=== PATIENT | female | born 1980 ===

== ENCOUNTER 2018-07-05 19:01 | Emergency (ER) | payer BC, OTHER ==
[2018-07-05 19:17] VITALS: RESP 20
--- NOTE | 2018-07-05 19:58 | C.PDOC ---
History Of Present Illness 38 year old female presents to ED with complaint of frequency and burning with urination for the past 3 days. She states that she had been drinking some cranberry juice and it help a little bit. Patient also complains of associated o f left flank pain. Patient's last normal menstrual period was at the end of June. Patient denies fever, chills, vomiting, nausea, blood in urine. Time Seen by Provider: 07/05/18 19:35 Chief Complaint (Nursing): Female Genitourinary History Per: Patient History/Exam Limitations: no limitations Onset/Duration Of Symptoms: Days (3) Current Symptoms Are (Timing): Still Present Quality Of Discomfort: Burning, "Pain" Associated Symptoms: Urinary Symptoms. denies: Fever, Chills, Nausea, Vomiting Past Medical History Reviewed: Historical Data, Nursing Documentation, Vital Signs Vital Signs: Last Vital Signs Temp 98.0 F 07/05/18 19:15 Pulse 81 07/05/18 19:15 Resp 20 07/05/18 19:15 BP 134/85 07/05/18 19:15 Pulse Ox 100 07/05/18 19:15 - Medical History PMH: No Chronic Diseases Surgical History: No Surg Hx Family History: States: Unknown Family Hx - Social History Hx Alcohol Use: No Hx Substance Use: No - Immunization History Hx Tetanus Toxoid Vaccination: No Hx Influenza Vaccination: No Hx Pneumococcal Vaccination: No Review Of Systems Constitutional: Negative for: Fever, Chills, Weakness Gastrointestinal: Positive for: Abdominal Pain (left flank pain ). Negative for: Nausea, Vomiting Genitourinary: Positive for: Dysuria, Frequency. Negative for: Hematuria Neurological: Negative for: Weakness, Numbness, Dizziness Physical Exam - Physical Exam Appears: Well, Non-toxic, No Acute Distress Skin: Normal Color, Warm, Dry Head: Atraumatic, Normacephalic Neck: Normal ROM, Supple Chest: Symmetrical, No Deformity Cardiovascular: Rhythm Regular, No Murmur Respiratory: No Accessory Muscle Use Gastrointestinal/Abdominal: Soft, No Tenderness Back: No CVA Tenderness Extremity: Capillary Refill (<2 seconds) Neurological/Psych: Oriented x3, Normal Speech, Normal Cognition ED Course And Treatment - Laboratory Results Result Diagrams: 07/05/18 20:03 07/05/18 20:03 Lab Interpretation: Abnormal (UA with clumps of WBCs and RBCs present) Urine POC: Negative O2 Sat by Pulse Oximetry: 100 (in RA) Pulse Ox Interpretation: Normal - CT Scan/US CT abd/pel Other Rad Studies (CT/US): Read By Radiologist, Radiology Report Reviewed CT/US Interpretation: EXAM: CT Abdomen and Pelvis without IV contrast. CLINICAL HISTORY: Abd pain. TECHNIQUE: Axial computed tomography images of the abdomen and pelvis without intravenous contrast. 1086 mGy-cm. CONTRAST: Without. COMPARISON: None provided. FINDINGS: LUNG BASES: The lung bases a ppear clear. No pleural effusions are seen. LIVER: There is diffuse hepatic hypoattenuation compatible with fatty infiltration. The liver is enlarged, 22 cm. GALLBLADDER AND BILE DUCTS: There are several calcified gallstones noted in the gallbladder measuring up to 2 cm. PANCREAS: Unremarkable. SPLEEN: Unremarkable. ADRENAL GLANDS: Unremarkable. KIDNEYS, URETERS, AND BLADDER: Punctate non-obstructing calculus is present in the lower pole of the right kidney. STOMACH AND BOWEL: Unremarkable appearance of the stomach and bowel. No evidence of bowel obstruction. No evidence suggesting enteritis or colitis. APPENDIX: No evidence of acute appendicitis on CT examination. PERITONEUM: No free fluid. No free air. LYMPH NODES: No lymphadenopathy is evident. REPRODUCTIVE: Unremarkable as visualized. VASCULATURE: No evidence of abdominal aortic aneurysm. BONES: No aggressive appearing osseous lesion. No acute osseous pathology evident. IMPRESSION: 1. Fatty liver. 2. There are several calcified gallstones noted in the gallbladder measuring up to 2 cm. 3. Punctate non-obstructing calculus is present in the lower pole of the right kidney. Reevaluation Time: 22:32 Reassessment Condition: Improved (after Toradol and IV Rocephin in ED.) Medical Decision Making Medical Decision Making: Impression: 38 year old female with frequency and dysuria Plan: Abdomen/Pelvis CT ordered for patient Labs ordered with UA and urine culture Disposition Counseled Patient/Family Regarding: Studies Performed, Diagnosis, Need For Followup, Rx Given - Disposition Referrals: Shaik Mixon MD [Staff Provider] - Disposition: HOME/ ROUTINE Disposition Time: 22:33 Condition: IMPROVED Prescriptions: Nitrofurantoin Macrocrystals [Macrobid] 1 cap PO BID #14 cap Phenazopyridine [Phenazopyridine HCl] 200 mg PO TID PRN #10 tab PRN Reason: Pain, Severe (8-10) Instructions: Urinary Tract Infections in Adults Forms: [facility] (Indonesian) - Clinical Impression Clinical Impression: UTI (urinary tract infection) - Scribe Statement The provider has reviewed the documentation as recorded by the Scribe (Evelina Leslie) All medical record entries made by the Scribe were at my direction and personally dictated by me. I have reviewed the chart and agree that the record a ccurately reflects my personal performance of the history, physical exam, medical decision making, and the department course for this patient. I have also personally directed, reviewed, and agree with the discharge instructions and disposition.
[2018-07-05 20:12] LABS: BASO % 0.4 % (0.0-2.0); EOS # 0.2 K/uL (0.0-0.7); EOS % 2.1 % (0.0-4.0); HEMOGLOBIN 13.5 g/dL (11.0-16.0); LYMPH # 2.6 K/uL (1.0-4.3); LYMPH % 26.5 % (20.0-40.0); MEAN CELL VOLUME 91.1 fL (81.0-99.0); MEAN CORPUSCULAR HEMOGLOBIN 30.8 pg (27.0-31.0); MEAN CORPUSCULAR HGB CONC 33.8 g/dL (33.0-37.0); MEAN PLATELET VOLUME 7.6 fL (7.2-11.7); MONO # 0.7 K/uL (0.0-0.8); NEUT # 6.4 K/uL (1.8-7.0); NRBC % 0.1 % (0.0-2.0); RBC 4.38 Mil/uL (3.80-5.20); RED CELL DISTRIBUTION WIDTH 13.8 % (11.5-14.5)
[2018-07-05 20:16] LABS: SQUAMOUS EPITHIAL 1 /hpf (0-5); URINE BACTERIA RARE (<OCC); URINE BILIRUBIN NEGATIVE (NEGATIVE); URINE BLOOD 2+ (NEGATIVE); URINE CLARITY Hazy (Clear); URINE COLOR Yellow (YELLOW); URINE GLUCOSE (UA) NORMAL (Normal); URINE LEUKOCYTE ESTERASE 3+ Leu/uL (Negative); URINE PROTEIN 2+ mg/dL (NEGATIVE); WBC CLUMPS MOD /hpf
[2018-07-05] MEDS ORDERED: cefTRIAXone IV 1 gm in Dextros 50 ML IVPB ONE (20:24)
[2018-07-05 20:25] LABS: ALB/GLOB RATIO 1.3 (1.0-2.1); ALT/SGPT 35 U/L (9-52); AST/SGOT 26 U/L (14-36); BLOOD UREA NITROGEN 10 mg/dL (7-17); CALCIUM 9.6 mg/dl (8.6-10.4); GFR NON-AFRICAN AMERICAN > 60
[2018-07-05 23:02] VITALS: BP 130/80; PULSE 80; TEMP 98; O2SAT 98
--- NOTE | 2018-07-06 07:21 | CT ---
Date of service: 07/05/2018 PROCEDURE: CT Abdomen and Pelvis with intravenous contrast HISTORY: Abdominal pain COMPARISON: None. TECHNIQUE: Multiple contiguous axial images were performed through the abdomen and pelvis with the use of intravenous contrast. Subsequently, sagittal and coronal reformatted images were obtained. Radiation dose: Total exam DLP = 1086.05 mGy-cm. This CT exam was performed using one or more of the following dose reduction techniques: Automated exposure control, adjustment of the mA and/or kV according to patient size, and/or use of iterative reconstruction technique. FINDINGS: LOWER THORAX: Atelectasis at the lung bases and lingula. LIVER: Prominent liver with fatty infiltration. GALLBLADDER AND BILE DUCTS: Prominent cholelithiasis with large gallstones noted within the gallbladder for example measuring up to 2.7 centimeters. Additional small calculus near the gallbladder neck measuring up to 4.5 millimeters. PANCREAS: Unremarkable. No gross lesion or ductal dilatation. SPLEEN: Unremarkable. Splenules. ADRENALS: Unremarkable. No mass. KIDNEYS AND URETERS: Punctate 2 millimeter nonobstructive calculus in the lower pole of the right kidney. VASCULATURE: Unremarkable. No aortic aneurysm. No aortic atherosclerotic calcification or mural plaque present. BOWEL: Fecal retention in the colon. APPENDIX: Unremarkable. Normal appendix. PERITONEUM: Unremarkable. No free fluid. No free air. LYMPH NODES: Few shotty para-aortic and inguinal lymph nodes. Few shotty mesenteric lymph nodes. BLADDER: Unremarkable. REPRODUCTIVE: Heterogeneous uterus and bilateral adnexa. BONES: Degenerative changes in the spine. OTHER FINDINGS: Small fat containing umbilical hernia. IMPRESSION: Cholelithiasis with prominent calculi in the gallbladder. Fatty infiltration of the liver. Punctate 2 millimeter nonobstructive calculus in the lower pole of the right kidney. Fecal retention in the colon. Small fat containing umbilical hernia. A preliminary report was generated at 10:05 p.m. on 07/05/[address] Jaiden Garcia from [facility]
== END 2018-07-05 22:48 | disposition home or self-care (01) ==
LOC: C.ER 19:01
DX: N39.0 Urinary tract infection, site not specified (principal)
CPT/HCPCS: 74176; 80053; 81001; 84703; 85025; 87086; 87181; 96365; 96375; 99283; J0696; J1885